=== PATIENT | female | born 1945 | race Caucasian/White ===

== ENCOUNTER → 2024-04-29 12:44 | Outpatient (REF) | payer MEDICARE, OTHER, SELFPAY | LOC: RCS 12:44 | PROVIDERS: ATTENDING PHYSICIAN Internal Medicine Cardiovascular Disease; FAMILY PHYSICIAN Internal Medicine | DX: R42 Dizziness and giddiness (principal) | CPT/HCPCS: 93306 ==

== ENCOUNTER → 2024-06-17 13:17 | Outpatient (REF) | payer MEDICARE, OTHER, SELFPAY ==
[2024-06-17 14:02] LABS: % Basophils 0.3 % (0-2); % Eosinophils 1.7 % (0-6); % Immature Granulocytes 0.4 % (0-0.5); % Lymphocytes 28.2 % (20.5-51.1); % Monocytes 8.4 % (1.7-9.3); Absolute Eosinophils 0.1 10^3/uL (0-0.7); Absolute Lymphocytes 2.2 10^3/uL (1.2-3.4); Absolute Monocytes 0.7 10^3/uL (0.1-0.6); Absolute Neutrophils 4.8 10^3/uL (1.4-6.5); Hematocrit 36.9 % (37.0-47.0); Hemoglobin 12.8 g/dL (12.0-16.0); Mean Corp Hgb Conc. 34.7 g/dL (33.0-37.0); Mean Corpuscular Hgb 30.6 pg (27.0-31.0); Mean Corpuscular Volume 88.3 fL (81.0-99.0); Mean Platelet Volume 9.5 fL (7.4-10.4); Nucleated Red Blood Cells % 0 %; Platelet Count 174 10^3/uL (130-400); Red Blood Cell Count 4.18 10^6/uL (4.20-5.40); Red Cell Dist. Width 12.4 % (11.5-14.5); White Blood Cell Count 7.9 10^3/uL (4.8-10.8)
[2024-06-17 14:27] LABS: ALT (SGPT) 29 U/L (0-35); AST (SGOT) 25 U/L (14-36); Albumin 4.2 g/dl (3.5-5.0); Alkaline Phosphatase 124 U/L (38-126); Blood Urea Nitrogen 29 mg/dl (7-17); Calcium 9.9 mg/dl (8.4-10.2); Carbon Dioxide 26 mmol/L (22-30); Chloride 105 mmol/L (98-107); Glucose 209 mg/dl (70-99); Sodium 141 mmol/L (135-145); Total Bilirubin 0.5 mg/dl (0.2-1.3); Total Protein 6.6 g/dl (6.3-8.2); eGFR > 60.00
== END ==
LOC: SDSPAT 13:17
PROVIDERS: ATTENDING PHYSICIAN Internal Medicine Cardiovascular Disease; FAMILY PHYSICIAN Internal Medicine
DX: R42 Dizziness and giddiness (principal); R94.31 Abnormal electrocardiogram [ECG] [EKG]; E11.9 Type 2 diabetes mellitus without complications; R00.1 Bradycardia, unspecified
CPT/HCPCS: 36415; 80053; 85025; 93005

== ENCOUNTER 2024-06-27 07:06 | Day surgery (SDC) | payer MEDICARE, OTHER, SELFPAY ==
[2024-06-17 13:22] VITALS: BMI 27.6
--- NOTE | 2024-06-17 14:21 | HPS.HSE ---
Family Physician
-
Family Physician: NO INTERVIEW UNKNOWN
Chief Complaint
-
Dizziness. Abnormal EKG. Bradycardia.
History of Present Illness
The patient is a 78 year old female presenting today with recent episodes of dizziness. She does have a history of benign paroxysmal positional vertigo with vertigo episodes occurring approximately 1-2 times a year. Since January 2024,
she has experienced a different type of dizziness. Her recent episodes of dizziness occur more frequently and in the morning as soon as she gets out of bed. These episodes are described as intense and often last less than 10 minutes. She did have
one episode, however, more recently which did last 20 minutes. An EKG in March 2024 demonstrated sinus rhythm of 64 beats per minute with rate variation (more than typical sinus arrhythmia) and 3 pauses under 2 seconds. Given her EKG was
suspicious for sinus node dysfunction, she was placed on a 14 day CAM from 04/14/24 to 04/28/24. Her monitor revealed a predominant rhythm of normal sinus with 1 episode of atrial tachycardia (35 beats) and 26 pauses, up to 3.1 seconds in duration. It
is recommended she proceed with a Medtronic pacemaker implant at this time given her sinus node dysfunction. She denies any current complaints today such as chest pain, shortness of breath, palpitations, nausea, vomiting, diarrhea, sore throat, or
fever. She does have a residual dry cough from a reported cold 5 days ago; however, this is notably improving.
Medical History
Past Medical History
Past Medical History: Reports Other
Additional Past Medical History:
1. Dizziness.
2. Abnormal EKG.
3. Bradycardia.
4. Elevated blood pressure without diagnosis of hypertension.
5. Hyperlipidemia.
6. Mild mitral regurgitation.
7. Mild tricuspid regurgitation.
8. Venous varicosities.
9. Non-insulin dependent diabetes.
10. GERD.
11. Presumed diverticulitis 2015.
12. Irritable bowel syndrome.
13. Remote migraines.
14. Benign paroxysmal positional vertigo.
15. Lumbar stenosis.
16. Glaucoma.
Past Surgical History: Reports Other
Additional Past Surgical History:
1. Left knee arthroscopy.
2. Titus teeth extraction.
3. Epidural steroid injection.
Social History
Tobacco: Non-smoker
Alcohol: None
Personal:
Living: Other (She lives with her in a 2 story home. )
Family History
Family History: Not pertinent
Allergies / Home Medications
Allergy/Medication List:
Home medications:
1. Atorvastatin 40 mg p.o. daily.
2. Trulicity 3 mg subcutaneous on Tuesdays.
3. Glipizide 10 mg p.o. daily.
4. Ibuprofen 200 mg p.o. every 6 hours as needed.
5. Vitafusion multivitamin 1 tablet p.o. daily.
6. Aleve 220 mg p.o. twice a day as needed.
Allergies: No known allergies.
Review of Systems
-
A 12 point ROS was completed and negative except as noted: Yes
Physical Exam
Vital Signs
Blood pressure 157/76. Heart rate 89. Respirations 18. Pulse ox 97% on room air.
Height 5 feet, 2 inches. Weight 68.4 kg. BMI 27.6.
Physical Exam
General: Well Developed, Well Nourished and No Apparent Distress
HEENT: NormoCephalic, Moist mucous membranes, Atraumatic and PERRLA
Respiratory: Clear
Cardiac: Regular Rhythm
GI: Soft, Non Tender and Non Distended
Musculoskeletal: No Edema and Normal Gait & Station
Skin: Warm and Dry
Neuro: AO x 3 and Nonfocal/grossly intact
Laboratory Results
-
DIAGNOSTIC STUDIES as of 06/17/2024: White blood cell count 7.9. Hemoglobin 12.8. Platelet count 174,000. Sodium 141. Potassium 4.0. BUN 29. Creatinine 0.9. Glucose 209. Calcium 9.9. AST 25. ALT 29. Albumin 4.2
EKG 06/17/2024: Sinus rhythm with marked sinus arrhythmia. Brief sinus pauses noted.
Echocardiogram 04/29/2024: Normal biventricular size and systolic function without regional wall motion abnormality. Mild mitral regurgitation. Mild tricuspid regurgitation. EKG strip shows sinus with recurrent short sinus pauses. Compared to
previous echo dated 02/04/2022, short sinus pauses are now reported.
Impression/Plan
-
IMPRESSION/PLAN:
1. Dizziness, abnormal EKG, and bradycardia: The patient is in need of a Medtronic pacemaker insertion with Dr. Greg Cervantes on 06/27/2024. The benefits and risks of the procedure have been explained to the patient. The patient understands these
risks and wishes to proceed. She is aware to hold her Trulicity within one week of her procedure. She will not take her Glipizide the morning of her pacemaker implantation.
[2024-06-27] VITALS (8 sets, daily range): BP systolic 128–178; BP diastolic 72–109; BMI 26.2
[2024-06-27 08:28] LABS: Glucose - Point of Care 171 mg/dl (70-99)
[2024-06-27] MEDS: GLUCOTROL XL (EXTENDED RELEASE) 10 MG PO (13:20)
--- NOTE | 2024-06-27 14:38 | W.PN.UPDATE ---
Update Note
Progress Note Update
78 yo WF s/p PPM (same day) She has very mild inc pain, no cp, sob, cece diet, CXR no PTX, EKG SR with PVC's. Activity restrictions reviewed. She has incision check in 1 week at [facility]. She is for d/c home after 3pm and 2nd dose of antibiotics.
[2024-06-27] MEDS: ANCEF 5 IV (14:58)
--- NOTE | 2024-06-27 15:30 | ITS.CL.PACE ---
[facility] - Pacemaker Implant
Pacemaker Implant
Procedure Report:
Date of Procedure: June 27, 2024.
Procedure: Pacemaker Implantation. Left upper extremity venogram.
Indication: The pacemaker is for the treatment of nonreversible symptomatic bradycardia due to sinus node dysfunction. A gambling monitor confirmed that some of her symptoms correlated with sinus node dysfunction.
Performing physician: Greg Cervantes MD, [facility].
Implants:
Pulse Generator: Medtronic; Model# [id number]; Serial# [id number].
RA Lead: Medtronic; Model# 5076-45cm; Serial# [id number].
RV Lead: Medtronic; Model# 3830-69cm; Serial# [id number].
Technique: A time out was performed. A 10 mL upper extremity venogram demonstrated patent left axillary, cephalic, and subclavian veins. The procedure site was identified. The patient was anesthetized by the anesthesia service. Preoperative
cefazolin was administered. The patient was prepped and draped in the usual fashion. Local anesthetic was applied to the left prepectoral subcutaneous tissue. A 3 inch incision was made along the left deltopectoral groove. Dissection was carried to
the fascia. The left cephalic vein was easily isolated and proximal and distal control with 2-0 Vicryl suture. Using a micropuncture needle to access the cephalic vein under direct visualization a wire was advanced into the central circulation. A 7
Fr introducer was placed to allow two 0.35 J wires to be advanced. The leads were introduced with hemostatic peel away introducer sheaths. The RV lead was placed using utilizing the [employer] delivery catheter ([id number]) that was advanced to the
left bundle area as confirmed by fluoroscopy in the BENGALI and DOWNS projections. The lead tip was advanced. PVC morphology was reviewed. When a satisfactory location was identified (W pattern observed) the lead was screwed into position with serial
turns. Septal engagement was confirmed with gentle torque applied to the guide sheath. After each series of turns (2-3) unipolar sensed morphology and impedance, and paced morphology of V1 was analyzed. The lead was further advanced until
satisfactory morphology and electrical characteristics were confirmed. The RV lead was placed in the third location evaluated. The long guiding sheath was cut and removed from the RV without change in lead position, impedance, sensing, or capture.
The ventricular lead was secured to the pectoralis muscle and fascia with two 0-silk sutures. The atrial lead was placed in the right atrial appendage. 8 volt pacing from each lead did not capture the diaphragm. The atrial leads was secured to the
pectoralis muscle and fascia. A subcutaneous pocket was created with Bovie cautery. Hemostasis was excellent. The leads were appropriately attached to the device. The pocket was irrigated with antibiotic solution. The device and leads were placed in
the pocket. The incision was closed in three layers with absorbable suture. Steri-strips and a silver impregnated dressing were placed. Estimated blood loss was 20 ml. There were no complications. Fluoroscopy time 4.2 minutes and DAP 1.92 GyCM2.
The device was then interrogated after skin closure.
Lead Analysis:
RA lead: P: 1 mV; Threshold: 0.5 V @ 0.4 ms; Impedance: 460 ohms.
RV lead (bipolar): R: 8 mV; Threshold: 0.5 V @ 0.4 ms; Impedance: 660 ohms.
Paced QRS characteristics: V1 has Qr morphology and measures 110 ms in duration, LVAT (stim to peak V5/V6) is 44 ms, and R peak V1 to R peak V6 is 51 ms.
Final Programming: MVP (AAIR to DDDR) 60-130 bpm.
Conclusion: Uncomplicated Medtronic pacemaker implant. The pacing system is MRI conditional.
Recommendation: Routine post pacemaker care.
cc: Snehal Carrera MD.
== END 2024-06-27 15:30 | disposition home or self-care (01) ==
LOC: CATH 07:06
PROVIDERS: ATTENDING PHYSICIAN Internal Medicine Cardiovascular Disease; FAMILY PHYSICIAN Internal Medicine
DX: I49.5 Sick sinus syndrome (principal); M48.061 Spinal stenosis, lumbar region without neurogenic claudication; R42 Dizziness and giddiness; I47.19 Other supraventricular tachycardia; R94.31 Abnormal electrocardiogram [ECG] [EKG]; I08.1 Rheumatic disorders of both mitral and tricuspid valves; R03.0 Elevated blood-pressure reading, without diagnosis of hypertension; E78.5 Hyperlipidemia, unspecified; E11.9 Type 2 diabetes mellitus without complications; G43.909 Migraine, unspecified, not intractable, without status migrainosus; K21.9 Gastro-esophageal reflux disease without esophagitis; K58.9 Irritable bowel syndrome, unspecified; H40.9 Unspecified glaucoma; Z79.899 Other long term (current) drug therapy; Z79.85 Long-term (current) use of injectable non-insulin antidiabetic drugs
CPT/HCPCS: 33208; 71045; 82962; 93005; C1769; C1785; C1887; C1892; C1898; Q9967